=== PATIENT | female | born 1955 | race Caucasian/White ===

== ENCOUNTER 2023-01-19 10:04 | Day surgery (SDC) | payer OTHER ==
[2023-01-18 15:02] VITALS: BMI 21.9
[2023-01-19] MEDS ORDERED: ROPIVACAINE HCL 0.5% 30ML VIAL ONE (10:27)
[2023-01-19] MEDS ORDERED: DEXAMETHASONE SOD PHOSPHATE/PF 10 MG/ML SDV ONE (10:27)
[2023-01-19] MEDS ORDERED: MIDAZOLAM HCL 2 MG/2 ML SINGLE DOSE VIAL ONE (10:27)
[2023-01-19] MEDS ORDERED: PROPOFOL 20 ML ONE ×2 (11:19→12:27)
[2023-01-19] MEDS ORDERED: ceFAZolin SODIUM 1 GM VIAL ONE (11:20)
[2023-01-19] MEDS ORDERED: DEXAMETHASONE SOD PHOSPHATE 4 MG/1 ML VIAL ONE (11:25)
[2023-01-19] MEDS ORDERED: ONDANSETRON 4 MG/2 ML VIAL ONE (11:25)
[2023-01-19] MEDS ORDERED: ONDANSETRON 4 MG/2 ML VIAL IVPUSH PRN (13:24)
[2023-01-19] MEDS ORDERED: PROMETHAZINE HCL 25 MG/1 ML VIAL IVPB PRN (13:24)
[2023-01-19] MEDS ORDERED: oxyCODONE HCL 5 MG TABLET PO PRN (13:24)
[2023-01-19] MEDS ORDERED: LACTATED RINGERS SOLUTION 1,000 ML IV SCH (13:30)
[2023-01-19 14:25] VITALS: RESP 18; TEMP 97.8
[2023-01-19 15:37] VITALS: BP 116/65; PULSE 60
== END 2023-01-19 15:50 | disposition home or self-care (01) ==
LOC: FASU 10:04
PROVIDERS: ATTEND Orthopaedic Surgery Hand Surgery
PROC: 0PSLXZZ Reposition Left Ulna, External Approach (ICD-10-PCS; 2023-01-19)
PROC: 0LN60ZZ Release Left Lower Arm and Wrist Tendon, Open Approach (ICD-10-PCS; 2023-01-19)
PROC: 0PSJ04Z Reposition Left Radius with Internal Fixation Device, Open Approach (ICD-10-PCS; principal; 2023-01-19 11:27)
DX: S52.572A Other intraarticular fracture of lower end of left radius, initial encounter for closed fracture (principal); S52.292A Other fracture of shaft of left ulna, initial encounter for closed fracture; X58.XXXA Exposure to other specified factors, initial encounter; Y93.9 Activity, unspecified; Y92.9 Unspecified place or not applicable
CPT/HCPCS: 25290; 25535; 25609; C1713; 73110-TC-LT-FY; 94760

== ENCOUNTER 2023-03-16 06:23 | Day surgery (SDC) | payer OTHER ==
[2023-03-14 12:33] VITALS: BMI 21.6
[2023-03-16] MEDS ORDERED: BUPIVACAINE HCL/PF 0.25% (2.5MG/ML) 10 ML VIAL ONE (07:16)
[2023-03-16] MEDS ORDERED: MIDAZOLAM HCL 2 MG/2 ML SINGLE DOSE VIAL ONE (07:55)
[2023-03-16] MEDS ORDERED: FENTANYL CITRATE/PF 50 MCG/ML VIAL ONE ×2 (07:56→09:31)
[2023-03-16] MEDS ORDERED: PROPOFOL 20 ML ONE ×2 (08:01→08:50)
[2023-03-16] MEDS ORDERED: ONDANSETRON 4 MG/2 ML VIAL IVPUSH PRN (09:31)
[2023-03-16] MEDS ORDERED: LACTATED RINGERS SOLUTION 1,000 ML IV SCH (09:45)
[2023-03-16] MEDS ORDERED: oxyCODONE HCL 5 MG TABLET PO PRN (09:59)
[2023-03-16 10:25] VITALS: PULSE 78; RESP 16; TEMP 98.6
[2023-03-16 11:34] VITALS: BP 108/57
== END 2023-03-16 11:35 | disposition home or self-care (01) ==
LOC: FASU 06:23
PROVIDERS: ATTEND Orthopaedic Surgery Hand Surgery
PROC: 01N40ZZ Release Ulnar Nerve, Open Approach (ICD-10-PCS; principal; 2023-03-16 08:22)
DX: G56.22 Lesion of ulnar nerve, left upper limb (principal)
CPT/HCPCS: 94760